=== PATIENT | male | born 1955 | race Asian ===

== ENCOUNTER 2020-12-20 22:28 | Emergency (ER) | payer BC ==
[~2020-12-20] VITALS: Ht 170.2 cm; Wt 56.2 kg
[2020-12-20] MEDS ORDERED: SODIUM CHLORIDE 0.9% 1000ML 1,000 ML IV STA ×2 (22:47→22:51)
[2020-12-20] MEDS ORDERED: FAMOTIDINE 20 MG/2 ML VIAL IV ONE ×2 (23:00→23:14)
[2020-12-20] MEDS ORDERED: ONDANSETRON HCL INJ 2MG/ML 2ML 2 MG/ML VIAL IV ONE (23:00)
[2020-12-20] MEDS ORDERED: ONDANSETRON HCL INJ 2MG/ML 2ML 2 MG/ML VIAL ONE (23:14)
[2020-12-20] MEDS ORDERED: SODIUM CHLORIDE 0.9% 1000ML 2,000 ML ONE (23:14)
[2020-12-21] MEDS ORDERED: ZOFRAN4 MG PO (00:28)
[2020-12-21] MEDS ORDERED: OMEPRAZOLE40 MG PO (00:28)
[2020-12-21] MEDS ORDERED: MAALOX MAXIMUM355 ML PO (00:28)
[2020-12-21] MEDS ORDERED: LEVOFLOXACIN 500 MG TAB PO ONE (00:30)
[2020-12-21] MEDS ORDERED: METRONIDAZOLE 500MG/NS 100ML 100 ML IV ONE ×2 (00:30→00:31)
[2020-12-21] MEDS ORDERED: LEVOFLOXACIN 500 MG TAB ONE (00:31)
== END 2020-12-21 01:21 | disposition home or self-care (01) ==
LOC: FSED 22:50
DX: R10.84 Generalized abdominal pain (principal); K52.1 Toxic gastroenteritis and colitis; K92.2 Gastrointestinal hemorrhage, unspecified; D64.9 Anemia, unspecified
CPT/HCPCS: 74176; 80053; 85025; 99284; C9113; J2405; J7030

== ENCOUNTER → 2021-01-11 | Day surgery (SDC) | payer BC ==
[~2021-01-11] MED LIST: FENTANYL CITRATE/PF 100MCG/2 ML INJ ONE; LIDOCAINE HCL 2% LOCAL INJ 5 ML SDV VIAL INJ ONE; MAALOX MAXIMUM355 ML PO; MIDAZOLAM HCL 2 MG/2 ML VIAL ONE; OMEPRAZOLE40 MG PO; PROPOFOL IV EMULSION 10 MG/ML 20 ML VIAL ONE; ZOFRAN4 MG PO
[2021-01-11 17:20] VITALS: BP 110/76
== END | disposition home or self-care (01) ==
LOC: OR 12:22
PROVIDERS: ATTEND Internal Medicine Gastroenterology
DX: K57.90 Diverticulosis of intestine, part unspecified, without perforation or abscess without bleeding (principal); K21.9 Gastro-esophageal reflux disease without esophagitis; K29.80 Duodenitis without bleeding; K29.50 Unspecified chronic gastritis without bleeding; D12.0 Benign neoplasm of cecum; D12.5 Benign neoplasm of sigmoid colon; K20.90 Esophagitis, unspecified without bleeding; K64.8 Other hemorrhoids; Z01.810 Encounter for preprocedural cardiovascular examination; Z01.812 Encounter for preprocedural laboratory examination; Z20.822 Contact with and (suspected) exposure to COVID-19
CPT/HCPCS: 43239; 45380; 45385; 93005; J2001; J2704; U0002; J2250; J3010